=== PATIENT | female | born 1985 | race African-American/Black ===

== ENCOUNTER 2017-12-18 08:04 | Emergency (ER) | payer MEDICAID ==
[~2017-12-18] VITALS: Ht 162.6 cm; Wt 53.0 kg
[2017-12-18] MEDS ORDERED: SUMATRIPTAN SUCCINATE 25MG TABLET PO ONE (10:00)
[2017-12-18] MEDS ORDERED: KETOROLAC 30MG/ML VIAL IM ONE (10:00)
[2017-12-18 10:17] VITALS: BP 117/77
== END 2017-12-18 10:20 | disposition home or self-care (01) ==
LOC: ER 08:12
DX: R51 Headache (principal)
CPT/HCPCS: 96372; 99283; J1885